=== PATIENT | female | born 1955 | race Caucasian/White ===

== ENCOUNTER 2017-02-05 20:02 | Inpatient (IN) | payer MEDICARE ==
[2017-02-05 20:36] LABS: BASOPHILS 0.2 % (0-2); EOSINOPHILS 1.8 % (0-7); HEMOGLOBIN 8.9 g/dL (12-16); IMMATURE GRANULOCYTES 0.6 % (0-5); LYMPHOCYTES 29.1 % (15-50); MCHC 31.8 g/dL (31.0-37.0); MCV 91.2 fL (80.0-100.0); MEAN PLATELET VOLUME 9.5 fL (7.4-10.4); MONOCYTES 9.4 % (2-11); NEUTROPHILS 58.9 % (40-80); PLATELET COUNT 392 10x3/uL (130-400); RBC 3.07 10x6/uL (4.00-5.40); RDW 15.3 % (11.5-14.5); WBC 9.6 10x3/uL (4.8-10.8)
[2017-02-05 21:09] LABS: INR 4.54 (0.85-1.17); PROTIME 43.7 SECONDS (11.6-15.0)
[2017-02-05 21:12] LABS: ALBUMIN 3.1 g/dL (3.4-5.0); BILIRUBIN - TOTAL 0.87 mg/dL (0.2-1.3); CALCIUM 8.9 mg/dL (8.5-10.1); CARBON DIOXIDE 29.4 mmol/L (21.0-32.0); POTASSIUM - SERUM 3.4 mmol/L (3.5-5.1); PROTEIN - SERUM 8.1 g/dL (6.4-8.2)
[2017-02-06] MEDS ORDERED: PERCOCET 5-3251 TAB PO (02:17)
[2017-02-06] MEDS ORDERED: CALCIUM 600+D T1 TA1 PO (02:18)
[2017-02-06] MEDS ORDERED: FERROUS SULFAT325 MG PO (02:19)
[2017-02-06] MEDS ORDERED: FISH OIL 1,0001 CA1 PO (02:19)
[2017-02-06] MEDS ORDERED: METHOTREXATE2.5 MG PO (02:20)
[2017-02-06] MEDS ORDERED: ZOFRAN ODT4 MG/UDTAB PO (02:20)
[2017-02-06] MEDS ORDERED: FOLIC ACID1 MG PO (02:20)
[2017-02-06] MEDS ORDERED: REMICADE INJ100 MG IV (02:21)
[2017-02-06] MEDS ORDERED: TRAZODONE HCL50 MG PO (02:22)
[2017-02-06] MEDS ORDERED: COUMADIN2.5 MG PO (02:22)
[2017-02-06] MEDS ORDERED: DYAZIDE 37.5/251 CAP PO (02:22)
[2017-02-06 05:15] LABS: BASOPHILS 0.1 % (0-2); EOSINOPHILS 2.8 % (0-7); HEMATOCRIT 24.2 % (36.0-48.0); IMMATURE GRANULOCYTES 0.5 % (0-5); LYMPHOCYTES 24.4 % (15-50); MCH 28.4 pg (26.0-34.0); MCHC 30.6 g/dL (31.0-37.0); MCV 92.7 fL (80.0-100.0); MEAN PLATELET VOLUME 9.5 fL (7.4-10.4); MONOCYTES 7.4 % (2-11); NEUTROPHILS 64.8 % (40-80); PLATELET COUNT 314 10x3/uL (130-400); RBC 2.61 10x6/uL (4.00-5.40); RDW 15.5 % (11.5-14.5); WBC 8.1 10x3/uL (4.8-10.8)
[2017-02-06 05:21] LABS: ANION GAP 9.5 mmol/L (8-16); CALCIUM 7.9 mg/dL (8.5-10.1); CARBON DIOXIDE 26.7 mmol/L (21.0-32.0); POTASSIUM - SERUM 3.2 mmol/L (3.5-5.1)
[2017-02-06 05:30] LABS: HEMOGLOBIN 7.4 g/dL (12-16)
[2017-02-06 10:47] LABS: APTT 35.5 SECONDS (22.8-39.4); INR 1.39 (0.85-1.17)
[2017-02-06 19:56] LABS: HEMATOCRIT 29.2 % (36.0-48.0); HEMOGLOBIN 9.4 g/dL (12-16)
[2017-02-07 05:25] LABS: BASOPHILS 0.2 % (0-2); EOSINOPHILS 4.5 % (0-7); HEMATOCRIT 29.2 % (36.0-48.0); HEMOGLOBIN 9.2 g/dL (12-16); IMMATURE GRANULOCYTES 0.6 % (0-5); LYMPHOCYTES 32.5 % (15-50); MCH 28.8 pg (26.0-34.0); MCHC 31.5 g/dL (31.0-37.0); MCV 91.5 fL (80.0-100.0); MEAN PLATELET VOLUME 9.7 fL (7.4-10.4); MONOCYTES 7.8 % (2-11); NEUTROPHILS 54.4 % (40-80); PLATELET COUNT 274 10x3/uL (130-400); WBC 6.2 10x3/uL (4.8-10.8)
[2017-02-07 05:34] LABS: RBC 3.19 10x6/uL (4.00-5.40)
[2017-02-07 05:47] LABS: CALCIUM 7.9 mg/dL (8.5-10.1); CARBON DIOXIDE 25.3 mmol/L (21.0-32.0); CHLORIDE - SERUM 109 mmol/L (98-107); CREATININE - SERUM 0.8 mg/dL (0.6-1.3); GLUCOSE 83 mg/dL (74-106); SODIUM 141 mmol/L (136-145); eGFR NON AFRICAN AMERICAN 77 mL/min (90-120)
[2017-02-07 05:48] LABS: CALC OSMOLALITY 278 mosm/kg (275-300); POTASSIUM - SERUM 3.9 mmol/L (3.5-5.1); UREA NITROGEN 9 mg/dL (7-18)
== END 2017-02-07 13:00 | disposition home health service (06) | DRG 378 ==
LOC: D.ER 20:02 → D.M2 22:06
PROVIDERS: Emergency Medicine; Nurse Practitioner Family; ADMIT Family Medicine
DX: K92.2 Gastrointestinal hemorrhage, unspecified (principal); D62 Acute posthemorrhagic anemia; D68.9 Coagulation defect, unspecified; E87.6 Hypokalemia; Z79.01 Long term (current) use of anticoagulants; I10 Essential (primary) hypertension; Z87.891 Personal history of nicotine dependence